=== PATIENT | female | born 1960 | race Caucasian/White ===

== ENCOUNTER → 2016-12-10 | Outpatient (CLI) | payer MEDICARE ==
--- NOTE | 2016-12-10 09:15 | RAD ---
EXAM DESCRIPTION: Right wrist series. CLINICAL HISTORY: Right wrist pain. COMPARISON: None. TECHNIQUE: Three views were submitted for evaluation. FINDINGS: No fracture, dislocation, or suspicious radiopaque foreign body is seen. Soft tissues are unremarkable. Further imaging could be considered if there is clinical concern for an occult scaphoid fracture (pain over the anatomical snuff box). IMPRESSION: No significant abnormality. Electronically signed by: Edwardo Hutchison MD 12/10/2016 09:13
== END | disposition home or self-care (01) ==
LOC: RAD 07:51
PROVIDERS: ATTEND Orthopaedic Surgery
DX: M67.49 Ganglion, multiple sites (principal)

== ENCOUNTER → 2017-05-25 | Outpatient (CLI) | payer MEDICARE ==
--- NOTE | 2017-05-25 19:34 | RAD ---
EXAM DESCRIPTION: Foot,Left 3 Views CLINICAL HISTORY: 57 years, Female, PAIN IN LEFT FOOT COMPARISON: None. FINDINGS: Irregular ossific density about 8 mm lateral base 5th metatarsal appears to be an avulsion injury, age indeterminate. There is no definite focal soft tissue swelling here. Please correlate clinically. Other bones and joints intact. Plantar heel spur. IMPRESSION: January [birth year] injury base of 5th metatarsal, age indeterminate. Please correlate clinically. Other bones and joints intact. Plantar heel spur. Electronically signed by: Ac Hamlin MD 05/25/2017 7:32 PM CDT
== END | disposition home or self-care (01) ==
LOC: RAD 09:39
PROVIDERS: ATTEND Orthopaedic Surgery
DX: M79.672 Pain in left foot (principal); Z01.818 Encounter for other preprocedural examination